=== PATIENT | female | born 1950 ===

== ENCOUNTER 2021-12-07 10:00 | Inpatient (IN) | payer OTHER ==
[~2021-12-07] VITALS: Ht 154.9 cm; Wt 67.1 kg
[2021-12-07] MEDS ORDERED: GLIPIZIDE-METF1 EAC2 PO (12:20)
[2021-12-07] MEDS ORDERED: NEURONTIN PO (12:21)
[2021-12-07] MEDS ORDERED: LOSARTAN POTASS50 MG PO (12:21)
[2021-12-07] MEDS ORDERED: SIMVASTATIN PO (12:21)
[2021-12-07] MEDS ORDERED: ZOLOFT50 MG PO (12:21)
[2021-12-07] MEDS ORDERED: NEURONTIN600 M1 PO (12:22)
[2021-12-17] MEDS ORDERED: LEVOTHYROXINE50 MCG (09:25)
[2021-12-17] MEDS ORDERED: PANTOPRAZOLE SO40 MG (09:25)
[2021-12-17] MEDS ORDERED: DEXAMETHAS0.5 MG/5 M (09:25)
[2021-12-17] MEDS ORDERED: CETIRIZINE HCL10 MG (09:25)
[2021-12-17] MEDS ORDERED: SIMVASTATIN20 MG (09:25)
[2021-12-17] MEDS ORDERED: GABAPENTIN100 M2 PO (09:26)
[2021-12-17] MEDS ORDERED: COLACE100 MG PO (09:52)
[2021-12-17] MEDS ORDERED: NEURONTIN800 MG PO (09:53)
[2021-12-17] MEDS ORDERED: MEDROLPACK PO (09:53)
[2021-12-17] MEDS ORDERED: PERCOCET 5-3251 EACH PO (09:53)
[2021-12-17] MEDS ORDERED: AMOX-CLAV 875-1 EACH PO (09:53)
== END 2021-12-19 15:20 | DRG 460 ==
LOC: SURH 12-10 10:00 → O/R 12-17 05:35 → SURH 12-17 05:35 → PED 12-17 15:01 → SURH 12-17 15:43
PROVIDERS: ADMIT Orthopaedic Surgery Orthopaedic Surgery of the Spine; ATTEND Orthopaedic Surgery Orthopaedic Surgery of the Spine
PROC: 0SG00J1 Fusion of Lumbar Vertebral Joint with Synthetic Substitute, Posterior Approach, Posterior Column, Open Approach (ICD-10-PCS; 2021-12-17)
PROC: 07DR3ZZ Extraction of Iliac Bone Marrow, Percutaneous Approach (ICD-10-PCS; 2021-12-17)
PROC: 0ST20ZZ Resection of Lumbar Vertebral Disc, Open Approach (ICD-10-PCS; principal; 2021-12-17 18:45)
DX: M43.16 Spondylolisthesis, lumbar region (principal); M48.062 Spinal stenosis, lumbar region with neurogenic claudication; I10 Essential (primary) hypertension; E11.9 Type 2 diabetes mellitus without complications; Z79.84 Long term (current) use of oral hypoglycemic drugs

== ENCOUNTER → 2021-12-14 | Outpatient (CLI) | payer OTHER ==
[~2021-12-14] MED LIST: AMOX-CLAV 875-1 EACH PO; CETIRIZINE HCL10 MG; COLACE100 MG PO; DEXAMETHAS0.5 MG/5 M; GABAPENTIN100 M2 PO; GLIPIZIDE-METF1 EAC2 PO; LEVOTHYROXINE50 MCG; LOSARTAN POTASS50 MG PO; MEDROLPACK PO; NEURONTIN PO; NEURONTIN600 M1 PO; NEURONTIN800 MG PO; PANTOPRAZOLE SO40 MG; PERCOCET 5-3251 EACH PO; SIMVASTATIN PO; SIMVASTATIN20 MG; ZOLOFT50 MG PO
== END | disposition home or self-care (01) ==
LOC: LAB 10:15
PROVIDERS: ATTEND Orthopaedic Surgery Orthopaedic Surgery of the Spine
DX: U07.1 COVID-19 (principal)